=== PATIENT | female | born 1970 | race Caucasian/White ===

== ENCOUNTER 2022-11-09 09:48 | Emergency (ER) | payer BC ==
[2022-11-09] VITALS (8 sets, daily range): BP systolic 122–139; BP diastolic 40–79
[~2022-11-09] VITALS: Ht 152.4 cm; Wt 75.0 kg
[2022-11-09 10:35] LABS: URINE BILIRUBIN - DIPSTICK NEGATIVE (NEGATIVE); URINE BLOOD DIPSTICK MODERATE (NEGATIVE); URINE COLOR YELLOW; URINE GLUCOSE - DIPSTICK NEGATIVE (NEGATIVE); URINE KETONE NEGATIVE (NEGATIVE); URINE LEUK ESTERASE NEGATIVE (NEGATIVE); URINE PROTEIN - DIPSTICK NEGATIVE (NEG-TRACE); URINE UROBILINOGEN - DIPSTICK 0.2 E.U./dL (0.2)
[2022-11-09 10:40] LABS: URINE EPITHELIAL CELLS FEW EPI/hpf (0-FEW); URINE NITRITE - DIPSTICK NEGATIVE (Negative)
[2022-11-09] MEDS ORDERED: CIPROFLOXACN500 MG PO (14:26)
== END 2022-11-09 14:37 | disposition home or self-care (01) | DRG 690 ==
LOC: ED 09:48
PROVIDERS: Family Medicine
DX: N39.0 Urinary tract infection, site not specified (principal); G40.909 Epilepsy, unspecified, not intractable, without status epilepticus

== ENCOUNTER 2024-02-28 17:04 | Emergency (ER) | payer OTHER ==
[2024-02-28] VITALS (8 sets, daily range): BP systolic 110–137; BP diastolic 69–89
[~2024-02-28] VITALS: Ht 152.4 cm; Wt 86.2 kg
[~2024-02-28 17:04] MED LIST: CIPROFLOXACN500 MG PO; TAMSULOSIN0.4 MG PO; TORADOL PO
[2024-02-28 18:11] LABS: URINE BILIRUBIN - DIPSTICK Negative (NEGATIVE); URINE BLOOD DIPSTICK Moderate (NEGATIVE); URINE GLUCOSE - DIPSTICK Negative (NEGATIVE); URINE KETONE Negative (NEGATIVE); URINE LEUK ESTERASE Negative (NEGATIVE); URINE NITRITE - DIPSTICK Negative (Negative); URINE PH 5.5 (4.5-8.0); URINE PROTEIN - DIPSTICK Negative (NEG-TRACE); URINE SPECIFIC GRAVITY >=1.030; URINE UROBILINOGEN - DIPSTICK 0.2 E.U./dL (0.2)
[2024-02-28 18:16] LABS: URINE COLOR Yellow
[2024-02-28] MEDS ORDERED: LAMICTAL100 M1 PO (18:17)
[2024-02-28 18:24] LABS: URINE SQUAMOUS EPITHELIAL CELL FEW EPI/hpf (0-FEW); URINE WBC 0-2 WBC/hpf (0-5)
[2024-02-28] MEDS ORDERED: KETOROLAC TROMETHAMINE 30 MG/ML SDV IV ONE (18:25)
[2024-02-28] MEDS ORDERED: SODIUM CHLORIDE 0.9% 1,000 ML IV ONE (18:25)
[2024-02-28] MEDS ORDERED: ONDANSETRON HCl 4 MG/2 ML SDV IV ONE (18:25)
[2024-02-28 18:54] LABS: BASO% 0.5 % (0-3); EOS% 1.8 % (0-8); HEMATOCRIT 40.3 % (37.0-47.0); HEMOGLOBIN 13.3 g/dl (12.0-16.0); IMMATURE GRANULOCYTES 0.1 % (0.0-5.0); LYMPH% 31.9 % (15-41); MEAN CELL VOLUME 94.2 fL CALC (80.0-100.0); MEAN CORPUSCULAR HGB 31.1 pG CALC (26.0-32.0); MONO% 6.1 % (2-13); NEUT# 4.37 thou/uL (2.00-7.15); NEUT% 59.6 % (42-76); RED BLOOD COUNT 4.28 mill/uL (4.20-5.60); RED CELL DISTRI WIDTH 12.1 % (11.5-15.5)
[2024-02-28 19:08] LABS: ALBUMIN 4.6 g/dL (3.2-5.0); BILIRUBIN, TOTAL 0.4 mg/dL (0.02-1.3); CREATININE 0.9 mg/dL (0.5-1.0); POTASSIUM 3.8 mmol/l (3.5-5.1); TOTAL PROTEIN 7.7 g/dL (6.3-8.2)
== END 2024-02-28 20:34 | disposition home or self-care (01) | DRG 392 ==
LOC: ED 17:04
PROVIDERS: Family Medicine; Nurse Practitioner
DX: R10.9 Unspecified abdominal pain (principal); Z87.440 Personal history of urinary (tract) infections; Z87.442 Personal history of urinary calculi